=== PATIENT | female | born 1985 | race Caucasian/White ===

== ENCOUNTER 2021-11-21 01:55 | Emergency (ER) | payer MEDICAID ==
[~2021-11-21] VITALS: Ht 157.5 cm; Wt 62.5 kg
[2021-11-21] MEDS ORDERED: ALBUTEROL (0.083%) 2.5MG/3ML NEB HHN ONE ×2 (02:45→03:30)
[2021-11-21] MEDS ORDERED: PREDNISONE 20MG TABLET PO ONE (02:45)
[2021-11-21] MEDS ORDERED: P50 MT (03:28)
[2021-11-21] MEDS ORDERED: ALBU18HF2 IH (03:28)
[2021-11-21 04:03] VITALS: BP 111/60
== END 2021-11-21 04:00 | disposition home or self-care (01) ==
LOC: ER 01:55
DX: J45.901 Unspecified asthma with (acute) exacerbation (principal); Z20.822 Contact with and (suspected) exposure to COVID-19
CPT/HCPCS: 81025; 87426; 94640; 99283; C9803; J7512; Z7610

== ENCOUNTER 2022-01-10 07:13 | Emergency (ER) | payer MEDICAID ==
[~2022-01-10] VITALS: Ht 157.5 cm; Wt 140.0 kg
[~2022-01-10 07:13] MED LIST: ALBU18HF2 IH; P50 MT
[2022-01-10 07:51] VITALS: BP 135/89
[2022-01-10] MEDS ORDERED: DEXAMETHASONE 10 MG/ML VIAL IM ONE (09:30)
[2022-01-10] MEDS ORDERED: ALBU6.7H3 INH (09:38)
== END 2022-01-10 10:12 | disposition home or self-care (01) ==
LOC: ER 07:13
DX: R05.9 Cough, unspecified (principal); J45.909 Unspecified asthma, uncomplicated; Z20.822 Contact with and (suspected) exposure to COVID-19
CPT/HCPCS: 87426; 96372; 99283; J1100

== ENCOUNTER 2022-03-25 00:33 | Emergency (ER) | payer MEDICAID ==
[~2022-03-25] VITALS: Ht 157.5 cm; Wt 66.0 kg
[~2022-03-25 00:33] MED LIST changes: +ALBU6.7H3 INH
[2022-03-25 00:52] VITALS: BP 151/67
== END 2022-03-25 03:16 | disposition left against medical advice (07) ==
LOC: ER 00:33
DX: Z53.21 Procedure and treatment not carried out due to patient leaving prior to being seen by health care provider (principal); I49.9 Cardiac arrhythmia, unspecified
CPT/HCPCS: 93005